=== PATIENT | female | born 1955 | race Caucasian/White ===

== ENCOUNTER 2022-08-08 09:16 | Emergency (ER) | payer MEDICARE, SELFPAY ==
--- NOTE | 2022-08-08 09:19 | ED.SKABFB ---
HPI - Skin/Abscess/Foreign Bdy General Chief complaint: Urogenital-Female Stated complaint: Skin Problem/Vaginal Time Seen by Provider: 08/08/22 09:19 Source: patient and RN notes reviewed History of Present Illness HPI narrative: Patient is 66-year-old female who presents the urgent care with complaints of a lump on the labia. Patient states she noticed it on Monday. States that it is not painful. Denies of any other acute complaints. No acute distress noted. Patient aware of the plan of care. Some parts of this dictation were generated by voice recognition software and may contain typographical and/or grammatical inaccuracies. Related Data Home Medications Medication Instructions Recorded Confirmed alprazolam 0.5 mg tablet 0.5 mg PO DAILY 08/08/22 08/08/22 Allergies Allergy/AdvReac Type Severity Reaction Status Date / Time No Known Allergies Allergy Verified 08/08/22 09:45 Review of Systems Review of Systems: CONSTITUTIONAL: Denies fever, chills, or sweats. EYES: Denies visual changes, redness, or discharge. ENT: Denies rhinorrhea, congestion, sore throat, or otalgia. CARDIOVASCULAR: Denies chest pain, palpitations, or edema. RESPIRATORY: Denies cough or dyspnea. GASTROINTESTINAL: Denies abdominal pain, nausea, vomiting, or diarrhea. GENITOURINARY: Denies dysuria or hematuria. SKIN: Reports of a painless lump to the left labia MUSCULOSKELETAL: Denies back pain, joint pain, or myalgia. NEUROLOGIC: Denies headache, numbness, or weakness. All other systems reviewed are negative, except as documented in HPI. PMFSH Comments At the time of my signature, I reviewed and agree with the nursing past medical, surgical, social, and family history. There is no relevant family history pertinent to the patient complaint. Exam Narrative: GENERAL: This is a well-nourished, well-developed patient, in no apparent distress. HEAD: normocephalic, atraumatic. EYES: PERRL. Sclera clear/white. Vision is grossly intact. EARS: External ears normal NOSE: External nose normal with no obvious nasal discharge, nares without redness, no rhinorrhea. THROAT: Mucous membranes moist NECK: Neck supple SKIN: 1 cm painless nonerythemic, nonraised left labial Bartholin's cyst. Warm, intact with no suspicious lesions or rash, good texture and turgor. NEURO: awake, alert, and oriented to person, place and time. There were no obvious focal neurologic abnormalities. EXTREMITIES: No clubbing, cyanosis, or edema. Course Course Level of Care: Express Care Visit Vital Signs Vital signs: Vital Signs Temperature 98.5 F 08/08/22 09:34 Pulse Rate 91 08/08/22 09:34 Respiratory Rate 20 08/08/22 09:34 Blood Pressure 197/89 H 08/08/22 09:34 Pulse Oximetry 100 08/08/22 09:34 Oxygen Delivery Room Air 08/08/22 09:34 Temperature 98.5 F 08/08/22 09:34 Pulse Rate 91 08/08/22 09:34 Respiratory Rate 20 08/08/22 09:34 Blood Pressure 197/89 H 08/08/22 09:34 Pulse Oximetry 100 08/08/22 09:34 Oxygen Delivery Room Air 08/08/22 09:34 Reviewed-patient is informed that they may have pre-hypertension or hypertension based on a blood pressure reading in the department. I recommend the patient call the primary care provider listed on their discharge instructions or a physician of their choice this week to arrange follow-up for further evaluation of possible pre-hypertension or hypertension. MDM - Skin/Abscess/Foreign Bdy MDM Narrative Medical decision making narrative: Advised the patient not to try to pop the area or pick on the area. Do not shave directly over the area. Continue to wear cotton underwear and shower only when necessary after sweating or your normal once a day shower. Over showering is not good for the normal chucho in the body. Use plain Dial soap and water to the SARAN area. Typically these Bartholin's cysts do not need to be removed and do disappear on their own. If you have any increase in the size of the ar
[2022-08-08 09:34] VITALS: BP 197/89; PULSE 91; RESP 20; TEMP 36.9; O2SAT 100
== END 2022-08-08 10:15 | disposition home or self-care (01) ==
PROVIDERS: Emergency Provider Nurse Practitioner Family
DX: N75.0 Cyst of Bartholin's gland (principal); E03.9 Hypothyroidism, unspecified
CPT/HCPCS: 99213; G0463